=== PATIENT | male | born 2000 | race Two or more races ===

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

== ENCOUNTER 2021-08-15 14:33 | Emergency (ER) | payer MEDICAID ==
[~2021-08-15] VITALS: Ht 185.4 cm; Wt 82.2 kg
[2021-08-15 15:58] LABS: Basophils # (auto) 0 10 ^3/uL (0-0.2); Basophils % (auto) 0.5 % (0.0-2.0); Eosinophils # (auto) 0.1 10 ^3/uL (0-0.8); Eosinophils % (auto) 0.9 % (0.0-7.0); Hematocrit 42.3 % (41.0-53.0); Hemoglobin 14.8 g/dL (13.5-17.5); Lymphocytes % (auto) 16.2 % (10.0-50.0); Mean Corpuscular Hemoglobin 29.5 pg (28.0-32.0); Mean Corpuscular Hgb Conc. 34.9 g/dL (32.0-36.0); Mean Corpuscular Volume 84.6 fL (80.0-100.0); Monocytes # (auto) 0.4 10 ^3/uL (0-1.3); Monocytes % (auto) 6.7 % (0.0-12.0); Neutrophils # (auto) 4.7 10 ^3/uL (1.6-8.6); Neutrophils % (auto) 75.7 % (37.0-80.0); Red Cell Distribution Width 13.2 % (11.8-14.3); White Blood Cell 6.2 10^3/uL (4.4-10.8)
[2021-08-15 16:31] LABS: Calcium 8.9 mg/dL (8.5-10.1); Magnesium 2.6 mg/dL (1.6-2.6); Potassium 4.4 mmol/L (3.5-5.1)
[2021-08-15 16:36] LABS: BUN/Creatinine Ratio 19.7; Bilirubin, Total 0.4 mg/dL (0.2-1.0); Total Protein 7.2 g/dL (6.4-8.2)
[2021-08-15 18:55] VITALS: BP 140/88
== END 2021-08-15 18:57 | disposition home or self-care (01) ==
LOC: EDBD 14:33 → ER 14:33
DX: R55 Syncope and collapse (principal); F12.10 Cannabis abuse, uncomplicated; R51.9 Headache, unspecified
CPT/HCPCS: 36415; 70450; 71045; 72125; 80053; 83735; 84484; 85025; 93005